=== PATIENT | female | born 1970 | race Caucasian/White ===

== ENCOUNTER 2020-05-25 14:39 | Emergency (ER) | payer OTHER ==
[~2020-05-25] VITALS: Ht 160 cm; Wt 104.3 kg
[2020-05-25 15:46] LABS: ABSOLUTE NEUTROPHILS 4.3 thou/uL (1.4-8.2); BASOPHILS 1.1 % (0.0-2.0); EOSINOPHILS 3.4 % (0.0-3.0); HEMATOCRIT 39.7 % (37.0-47.0); HEMOGLOBIN 13.1 gm/dL (12.0-15.0); MCH 28.9 pg (26.0-34.0); MCV 87.7 fL (80.0-100.0); MONOCYTES 4.8 % (1.0-8.0); PLATELET COUNT 199 thou/uL (150-400); POLYS 56.7 % (36.0-66.0); RBC 4.52 mil/uL (4.20-5.00); RDW 13.5 % (10.5-14.5); WBC 7.5 thou/uL (4.0-11.0)
[2020-05-25 15:52] LABS: CREATININE 0.9 mg/dL (0.6-1.0); POTASSIUM 4.1 mmol/L (3.5-5.1)
[2020-05-25 15:58] LABS: ALBUMIN 3.3 g/dL (3.4-5.0); TOTAL BILIRUBIN 0.3 mg/dL (0.2-1.0); TOTAL PROTEIN 7.4 g/dL (6.4-8.2)
[2020-05-25 15:59] LABS: URINE BILIRUBIN NEGATIVE (Negative); URINE BLOOD 2+ (Negative); URINE CLARITY CLEAR; URINE COLOR YELLOW; URINE GLUCOSE-RANDOM* NEGATIVE (Negative); URINE KETONES NEGATIVE (Negative); URINE LEUKOCYTES-REFLEX NEGATIVE (Negative); URINE NITRITE-REFLEX NEGATIVE (Negative); URINE PROTEIN (DIPSTICK) 1+ (Negative); URINE UROBILINOGEN 0.2 E.U./dl (0.2-1.0)
[2020-05-25 16:23] LABS: SQUAMOUS 0-3 Few /LPF (0-3); URINE RBC 3-10 Few /HPF (0-2)
[2020-05-25 16:24] LABS: BACTERIA-REFLEX 1-9 Few /HPF (None Seen); CASTS None Seen /LPF (None Seen); CRYSTALS None Seen /LPF (None Seen); URINE WBC-REFLEX 0-5 Rare /HPF (0-5)
[2020-05-25] MEDS ORDERED: CORRECTOL5 M1 PO (17:26)
[2020-05-25] MEDS ORDERED: ADVAIR DISKUS (17:26)
[2020-05-25] MEDS ORDERED: ADULT LOW DOSE81 MG PO (17:26)
[2020-05-25] MEDS ORDERED: PULMICORT1 MG/2 ML INH (17:27)
[2020-05-25] MEDS ORDERED: CARAFATE1 GM PO (17:27)
[2020-05-25] MEDS ORDERED: DILTIAZEM ER240 MG PO (17:28)
[2020-05-25] MEDS ORDERED: DUONEB INH (17:29)
[2020-05-25] MEDS ORDERED: LEXAPRO 10 MG T10 MG PO (17:29)
[2020-05-25] MEDS ORDERED: LISINOPRIL20 MG PO (17:30)
[2020-05-25] MEDS ORDERED: KEPPRA1000 MG PO (17:30)
[2020-05-25] MEDS ORDERED: LOPERAMIDE 2 MG2 M1 PO (17:39)
[2020-05-25] MEDS ORDERED: MYLANTA PO (17:59)
[2020-05-25] MEDS ORDERED: OMEPRAZOLE 20 M20 M1 PO (18:00)
[2020-05-25] MEDS ORDERED: ZUPLENZ4 MG PO (18:01)
[2020-05-25] MEDS ORDERED: PRIMIDONE 250M250 MG PO (18:01)
[2020-05-25] MEDS ORDERED: MI-ACID80 MG PO (18:02)
[2020-05-25] MEDS ORDERED: SEROQUEL XR 20200 MG PO (18:02)
[2020-05-25] MEDS ORDERED: TYLENOL325 MG PO (18:03)
[2020-05-25 19:30] VITALS: BP 128/78
--- NOTE | 2020-05-26 11:16 | EKG ---
[address] [address] ELECTROCARDIOGRAM REPORT Name: JERRY MADERA Room #: DEP [facility]#: [id number] Admission: 05/25/20 Attend Phys: Discharge: 05/25/20 Date of : 68 Report #: [id number] [facility] ED Test Date: 2020-05-25 Test Time: 15:08:05 Pat Name: JERRY MADERA Department: Room: Gender: F Fruit And Vegetable Packer: JCHAIREZ : 1970 Requested By: Philip Sagastume Order Number: [id number] MD: Tomy Alonzo Measurements Intervals [place] Rate: 78 P: 50 MT: 156 QRS: 49 QRSD: 88 T: 29 QT: 384 QTc: 438 Interpretive Statements Sinus rhythm No significant abnormality No previous ECG available for comparison Electronically Signed On 05-26-2020 11:16:45 BEAMER HELPER by Tomy Alonzo [email or web address] <ELECTRONICALLY SIGNED> By: Tomy Alonzo MD, [facility] 05/26/20 1116 [id number] [id number] Tomy Alonzo MD, FACC /EPI
== END 2020-05-25 19:48 ==
LOC: ER 14:39
PROVIDERS: Physician Assistant
DX: R45.851 Suicidal ideations (principal); R45.850 Homicidal ideations; Z79.82 Long term (current) use of aspirin; Z79.899 Other long term (current) drug therapy; Z88.8 Allergy status to other drugs, medicaments and biological substances; Z20.822 Contact with and (suspected) exposure to COVID-19

== ENCOUNTER 2020-05-25 20:31 | Inpatient (IN) | payer OTHER ==
[~2020-05-25] VITALS: Ht 160 cm; Wt 107.5 kg
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
[~2020-05-25 20:31] MED LIST: ADULT LOW DOSE81 MG PO; ADVAIR DISKUS; CARAFATE1 GM PO; CORRECTOL5 M1 PO; DILTIAZEM ER240 MG PO; DUONEB INH; KEPPRA1000 MG PO; LEXAPRO 10 MG T10 MG PO; LISINOPRIL20 MG PO; LOPERAMIDE 2 MG2 M1 PO; MI-ACID80 MG PO; MYLANTA PO; OMEPRAZOLE 20 M20 M1 PO; PRIMIDONE 250M250 MG PO; PULMICORT1 MG/2 ML INH; SEROQUEL XR 20200 MG PO; TYLENOL325 MG PO; ZUPLENZ4 MG PO
[2020-05-25 20:55] VITALS: BP 161/104
[2020-05-25 22:00] VITALS: BP 141/80
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
[2020-05-26 09:16] VITALS: BP 145/95
--- NOTE | 2020-05-26 12:31 | NUR ---
PT UPSET AND DIDN'T WANT CURRENT NURSE TO TAKE CARE OF HER. PT STATED I NEED TO TALK TO SOMEONE NOW AND ASKING THIS MEDICATION ADMINISTRATION PROFESSIONAL IF THERE WAS TIME TO TALK. PT STATED I'M GETTING ANGRY. PT STATED JUST GIVE ME A SHOT. ADM SEROQUEL 50MG PO FOR ANXIETY.
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
[2020-05-26 21:51] VITALS: BP 145/95
[2020-05-26 22:11] VITALS: BP 124/100
--- NOTE | 2020-05-26 23:56 | NUR ---
8253 RESUMMED CARE FROM DAY SHIFT THIS EVENING, PATIENT IN WC IN DAY ROOM. PATIENT WAS VERY ANXIOUS AT START OF SHIFT SHE ASKED IF SHE COULD CALL HER NEPHEW. I DID PLACE THE CALL AND PATIENT WAS ABLE TO BE MUCH CALMER; PATIENT ALERT ORIENTED TO SELF AND PLACE. PATIENTS ABDOMEN SOFT BOWEL SOUNDS PRESENT PATIENTS LUNGS CLEAR. PATIENT DENIES SI/HI/AH/VH AT PRESENT PATIENT STATES SHE DOES NOT FEEL SAFE AT HOME. PATIENT TOOK MEDICATION WITHOUT INCIDENCE AND THEN ASKED TO GO TO BED. WILL CONTINUE TO MONITOR PATIENT FOR SAFETY AND BEHAVIORS.
[2020-05-27 11:17] VITALS: BP 116/77
--- NOTE | 2020-05-27 18:37 | NUR ---
ASSUMED CARE AT 0700 TODAY. PT. UP IN THE MORNING. WENT TO BED AFTER BREAKFAST AND REMAINED IN BED UNTIL AFTER SUPPER. SHE REQUESTED PRN'S FOR ALL STRESSORS. SHE SPENT DAY IN BED, UP FOR SUPPER. SPOKE WITH MOTHER AND GOT UPSET AT 1830. SHE IS ASKING FOR PRN. STATES, "I'M CONFUSED THEN RATTLES OFF HOW MUCH SHE ATE AND HOW MANY TIMES SHE URINATED". GOT UP, THEN ASKED FOR HELP TO THE BATHROOM. WAS PUT ON FALL PRECAUTIONS DUE TO UNSTEADY GAIT.
[2020-05-27 18:58] VITALS: BP 116/77
--- NOTE | 2020-05-27 19:30 | NUR ---
SW completed treatment plan and psychosocial assessment. SW team will continue to follow.
[2020-05-27 19:39] VITALS: BP 115/71
--- NOTE | 2020-05-28 05:15 | NUR ---
05-27-20 CARE TRANSFERRED 1899 OBSERVED PT RESTING IN BED WITH EYES CLOSED. LATER PT AAOX2, VSS, RR EVEN AND NONLABORED ON RA, PT DENIES SI/HI AND PAIN AT THIS TIME. PT PRESENTS ANXIOUS BUT REMAINS COOPERATIVE. LATER PT BED WAS ADJUSTED FOR COMFORT. ZERO S/S OF ACUTE DISTRESS NOTED, PT WILL CONTINUE TO BE MONITOR PER [facility] PROTOCOL.
[2020-05-28 11:45] VITALS: BP 118/75
--- NOTE | 2020-05-28 11:55 | NUR ---
Nutrition: pt admit to [facility] with SI, HI. PMH: Bipolar, PTSD, borderline personality disorder, HTN, GERD, DM. BG 102-165. Eating highly variable amounts of meals from refusal to 100% past 2 days since admission. Pt reports appetite was fine prior to admit. Dislikes hospital food. Offered to assist with ordering meals and food preferences but pt denies. Refuses offer of supplements. Stable weights. RD encouraged ordering meals with assistance of staff as desired. Will follow for improvement in PO. Place as low risk.
[2020-05-28 14:21] VITALS: BP 118/75
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
--- NOTE | 2020-05-28 15:23 | NUR ---
During group patient identified "going to the k[place]" as a coping skill. She explains that she has always enjoyed being at the kiser physically but when she becomes upset it is helpful for people around her to say "go to the kiser," so so that she can imagine that she is there. She requests this to be done when she has outbursts on the unit.
[2020-05-28 19:33] VITALS: BP 109/76
--- NOTE | 2020-05-29 04:12 | NUR ---
05-28-20 CARE TRANSFERRED 0 OBSERVED PT SITTING IN DAYROOM IN W/CHAIR. LATER PT AAOX2, VSS, RR EVEN AND NONLABORED ON RA. PT DENIES SI/HI AND PAIN. PT HAS BEEN CALM AND COOPERATIVE. LATER PT BECAME TEARFULL AND REPORTED SHE WAS SCARED AND WANTED TO CALL HER MOM. PT WAS COMFORTED AND LATER CALLED MOM. LATER PT WAS ASSISTED TO BED AND BED ADJUSTED FOR COMFORT. ZERO S/S OF ACUTE DISTRESS NOTED, PT WILL CONTINUE TO BE MONITOR PER [facility] PROTOCOL.
[2020-05-29 07:00] VITALS: BP 128/86
[2020-05-29 08:40] VITALS: BP 123/80
--- NOTE | 2020-05-29 09:22 | NUR ---
PT VERY SLEEPY THIS AM. PT SLIDE DOWN IN W/C AND NEEDED TO BE AWOKE TO SIT UP. PT STATED I AM HOME, REASURED PT SHE WAS AT HOSPITAL. PT STATED NO SHE WAS IN THE HOSPITAL AND WANTED HER MOM. PT STATE SHE WAS TIRED.
--- NOTE | 2020-05-29 13:00 | NUR ---
PT WANTED TO TALK TO THIS JAVA ENGINEER AND WANTED TO GO OVER MEDS DUE TO SHE IS SLEEPY TODAY. PT TALKED ABOUT HER MOM AND HER BOYFRIEND.
--- NOTE | 2020-05-29 17:54 | NUR ---
PT TALKED TO DR. STROUD ABOUT HER MEDS. THIS BUILDING SERVICE WORKER GOING AROUND THE CORNER TO GET HER WATER AND HEARD HIM COMMENT THAT IF SHE TOUCHES HIM SHE WILL GO TO DETENTION. PT WAS SCREAMING AT DR. Vazquez. PT WAS SENT TO QUIET ROOM AND PT WAS LYING IN THE BED AND CRYING AND STATED DR. Vazquez YELLED AT HER. SHE WANTING TO HAVE A LORAZEPAM TO CALM HER DOWN. JUST GAVE PT SEROQUEL 100MG PO.
[2020-05-29 19:51] VITALS: BP 123/80
--- NOTE | 2020-05-30 05:29 | NUR ---
05-29-20 CARE TRANSFERRED 1914 OBSERVED PT SITTING IN W/CHAIR IN DAY ROOM. LATER PT AAOX2, VSS, RR EVEN AND NONLABORED ON RA. PT DENIES SI/HI AND PAIN. DURING MEDICATION ADMIN PT BECAME ANXIOUS AND STATED "DON'T PUT ME IN TIME, I JUST WANTED TO CALL MY MOMMIE" PT WAS EASILER TO COMFORT AND PT CALLED MOM. LATER PT WAS ASSISTED WITH BED ADJUSTMENT FOR COMFORT. ZERO S/S OF ACUTE DISTRESS NOTED, PT WILL CONTINUE TO BE MONITOR PER [facility] PROTOCOL
[2020-05-30 09:55] VITALS: BP 133/80
--- NOTE | 2020-05-30 13:05 | NUR ---
JESE contacted Pt's parents, Loy and Quiana Newell [phone], in an effort to set up a family meeting. JESE was unable to get in touch with anyone. JESE left a message for a call back
--- NOTE | 2020-05-30 14:15 | NUR ---
Assumed pt care at 0700. alert and oriented to self and situation. ambulates with a w/c. denies si/hi, denies pain at this time. Assessments completed,vss. Took meds whole, no difficulty noted. pt c/o of itching. Dr Arita notified. Hydroxyzine administered. calm and co-operative with care. pt sit in her w/c in the day room. pt occasionally pace unit with her w/c. will continue to monitor.
[2020-05-30 19:38] VITALS: BP 102/92
--- NOTE | 2020-05-30 23:49 | NUR ---
ASSESSMENT COMPLETED. PT WAS IN DAY AREA AT THE START OF SHIFT. GOT A LITTLE WORKED UP BY ANOTHER CLIENT-TRIED TO CALL MOM BUT THEN IMMEDIATELY GOT UPSET AND HUNG UP. SHE KEPT ON SAYING THAT SHE HAS TO GO TO A HAPPY PLACE WHICH IS THE [place]-SO SHE HAS TO IMAGINE SHE IS THERE SO NOT TO HAVE ANY OUTBURSTS. HS MEDS GIVEN INCLUDING VISTARIL WHICH I ASSURED HER WILL CALM HER SOME.STILL HAS ITCHING TO GORGE HANDS, DRY SKIN NOTED, LOTION APPLIED TO HANDS AND BACK WITH RELIEF.PT IS MAX ASSIT X 1 FOR TRANSFERS. SHE IS NOW OBSERVED IN BED WITH EYES CLOSED.
[2020-05-31 09:18] VITALS: BP 110/76
--- NOTE | 2020-05-31 10:20 | NUR ---
Assumed pt care at 0700. pt was alert and oriented to self and situation. ASSESSMENT COMPLETED VSS. PT AMBULATES WITH A W/C. TOOK MEDS WHOLE, NO DIFFICULTY NOTED. Denies si/hi. during assessments pt asked report writer if Rapid response will be call if she had a seizure. At approximately 1000 report writer was in the nurses station when she had a call for help. report writer and another nurse went into the day room and discovered pt on the floor. ASSESSING THE SITUATION,ASKING QUESTION AND WATCHING THE VIDEO. PT APPEARED TO START JERKING SELF, SPECIALTY PERSON asssisted her to the floor. when report writer arrived to pt. pt Stated that she was having a seizure, and she wanted us to call rapid response. pt was assisted back to her room. pt continued to ask nurse if she would give her seizure medication and call rapid response. pt stated she usually is aware when she was having a seizure.this time she was unaware of the seizure.At this time pt is in bed resting. per shift report, pt was asking for rapid response call on her last night, after witnessing a rapid response call on another pt. Pt is currently asking for anxiety meds, report writer reminded her she got hydroxyzine with 0800 meds. pt stated she wanted Ativan instead. DR Stroud IS AWARE OF PT SITUATION. DR STROUD WENT TO SPEAK WITH PT. WILL CONTINUE TO MONITOR.
--- NOTE | 2020-05-31 10:54 | NUR ---
Aprx 1008 pt was sitting in group in close proximity to this flex o writer operator. Patient gained flex o writer operator's attention when she was heard loudly yelling, "OH!!!" She raised her arms to the front of her and began flailing her arms and grunting. She then began to slide herself down her wheelchair so that her mid back was holding her up. She continued to thrust her body and grunt. At this time flex o writer operator and BLOCK CHOPPER HAND lowered pt to the floor. She did not hit her head. Once to floor nursing staff arrived for assistance and pt immediately opened her eyes, loudly stating, "I had a seizure! Well, not a seizure... a stress seizure! I don't remember what happened! Are you going to call a rapid response?" Staff assured pt that she was safe and assisted her back in to her chair and to her room. As she was wheeled to her room she was heard stating, "are you going to call rapid response? I don't even remember what happened but this is what happens when I am so stressed!" During group pt was attentive and at her baseline -- not displaying behaviors out of the ordinary for her. She did identify that, "it's not a good day. I am not having a good day. I just feel down." This event also occured after another pt began dancing, recieving attention of the group.
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
[2020-05-31 19:46] VITALS: BP 100/64
[2020-05-31 22:31] VITALS: BP 100/64
--- NOTE | 2020-05-31 23:44 | NUR ---
Assumed care on 05/31/20 @ 1900, in the day room in a w/c socializing with peers. Speaks when addressed, A&Ox2-3. Denies SI/HI. Spoke on the phone with her mother. Compliant with medication. After going to bed, c/o cindy, at patient's request, raised bed rail to help her feel secure. Follow up with patient in 12 minutes noted to have eyes closed, respirations even and unlabored, lying on her left side in the bed. Bed in low position, bed alarm set.
--- NOTE | 2020-06-01 08:09 | NUR ---
RT Progress Note- Zenaida has been a regular participant in both the milieu and recreation therapy groups since her admission. Zenaida is fairly active during group discussions, but does become extremely emotional at times- tearful, loud speech. She is supportive of other pts and has not had conflict with them during groups. REGULATORY PROCESS MANAGER will continue to encourage her participation with a goal of improved social interaction and mood stability.
[2020-06-01 09:29] VITALS: BP 126/85
--- NOTE | 2020-06-01 13:22 | NUR ---
JESE send referral to the following: [place] [phone] [place] [phone] [facility] [phone] [facility] [phone]
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
[2020-06-01 20:37] VITALS: BP 127/86
--- NOTE | 2020-06-02 03:22 | NUR ---
ASSESSMENT: PT REMAIN ALERT AND ORIENT TIMES THREE. "JUST WANT TO GO TO BED" AT THE BEGINNING OF THE SHIFT. VSS, AFEBRILE. DENIES SI/HI CURRENTLY. TOLERATING PO INTAKE. SLOW PROGRESS TOWARDS DC GOALS. WILL CONTINUE TO MONITOR.
[2020-06-02 08:25] VITALS: BP 154/89
--- NOTE | 2020-06-02 10:04 | NUR ---
0700 ASSUMED CARE OF PATIENT, PATIENT IN ROOM AT THAT TIME. PATIENT OUT TO DAYROOM VIA WC. ATE 100% OF BREAKFAST. MEDICATION TAKEN WHOLE WITHOUT DIFFICULTY. PATIENT TALKATIVE AND WORRIED ABOUT GETTING PLACED. PATIENT STATES "IM WORRIED THEY WILL NOT FIND A PLACE UNTIL I AM DC'D". REFUELING RAMP ATTENDANT TALKED WITH PATIENT, PATIENT UNDERSTANDS THE PROCESS. NO C/O PAIN, LS CLEAR, BS ACTIVE. VS BP- 143/64 P-97 R- 17 T- 97.9 SATS- 96% PATIENT PRESENT IN GROUP THIS AM. PATIENT COMMUNICATING WITH OTHERS WELL. PATIENT LAUGHING AND SMILING WITH OTHERS. PATIENT GOAL IS TO CONTROL HER ANGER. PATIENT CONCERN IS PLACEMENT. WILL CONTINUE TO OBSERVE
[2020-06-02 19:50] VITALS: BP 126/90
--- NOTE | 2020-06-03 01:12 | NUR ---
ASSESSMENT: PT REMAIN ALERT AND ORIENT TIMES. NO SEIZURES NOR OUTBURST NOTED. WAS SITTING IN THE DAY ROOM AT THE BEGINNING OF THE SHIFT. HS SNACK GIVEN. VSS, AFEBRILE. SLOW PROGRESS TOWARDS DC GOALS. WILL CONTINUE TO MONITOR.
[2020-06-03 09:46] VITALS: BP 138/98
--- NOTE | 2020-06-03 10:57 | NUR ---
JESE spoke with patient for a check in on her mental health. Patient reported she is very anxious about where she will live after being discharged. Patient reported she was living with her parents and other family members. Patient reported her parents informed her that she will need to be able to care for herself before she can return home. Patient reported she is interested in a skilled rehab. SW informed patient that she will not be released without having a safe place to be. JESE will follow up with patient.
--- NOTE | 2020-06-03 16:06 | NUR ---
Patient spoke with SW about placement. SW and patient together googles [facility] in [place]. Patient wanted to ask the facilty questions about the care they provide. SW contacted [facility], patient asked if there were rooms available. SW and patient looked at pictures online of the facility. Patient reported she was excited and wanted SW to fax a referral. Sia in admissions provided the fax number. SW faxed a referral to [facility], Sia reported she will contact the SW on Thursday with more information.
--- NOTE | 2020-06-03 17:32 | NUR ---
0700 ASSUMED CARE OF PATIENT, PATIENT IN ROOM SLEEPING. PATIENT TO BSC PRIOR TO GOING OUT TO DAYROOM X2 ASSIST. PATIENT SMILING AND HAPPY. PATIENT STATE "I WILL HAVE A GOOD DAY". PATIENT COMMUNICATES WELL WITH OTHER WITH NO BEHAVIORS NOTED. MEDICATIONS TAKEN WHOLE WITHOUT DIFFICULTIES. PRESENT IN GROUPS TODAY. VS WNL.
[2020-06-03 19:00] VITALS: BP 122/91
--- NOTE | 2020-06-04 03:24 | NUR ---
ASSUMED CARE FROM DAY SHIFT PT CALM COOPERATIVE IN DAYRROM WATCHING TV , HAVE NO CONCERNS AT THIS TIME. PO MEDICATION TAKEN WITH ISSUES. HS SNACK EATEN AND PT ROOLED TO SELF TO ROOM. UP TO BSC , LOWER VERY WEAK AND JERKING LIKE MOVEMENT. PT STATES THIS CAUSED BY HER MEDICATON.PT RESTING QUIETLY THROUHGOUT ROUNDING BED ALARM ON FOR SAFETY. WILL CONITNUE TO MONITOR AND WILL REPORT CHANGES.
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
[2020-06-04 10:20] VITALS: BP 133/96
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
[2020-06-04 13:05] VITALS: BP 133/96
--- NOTE | 2020-06-04 14:16 | NUR ---
1415 RESUMMED CARE FROM OVERNIGHT SHIFT THIS AM, PATIENT IN DAY ROOM TALKING WITH OTHER PATIENTS. PATIENT ATE BREAKFAST TOOK MEDICATION WITHOUT INCIDENCE; PATIENT DENIES SI/HI/AH/VH AT PRESENT. PATIENTS ABDOMEN SOFT BOWEL SOUNDS PRESENT PATIENTS LUNGS CLEAR. PATIENT HAS PARTICIPATED IN GROUPS NO BEHAVIORS THIS SHIFT. WILL CONTINUE TO MONITOR PATIENT FOR SAFETY AND BEHAVIORS.
[2020-06-04 19:24] VITALS: BP 103/72
--- NOTE | 2020-06-05 01:54 | NUR ---
ASSESSMENT: PT REMAIN ALERT AND ORIENT TIMES THREE. DID NOT SEEM ANXIOUS THIS SHIFT THUS FAR. IN WC IN THE DAY AREA AT THE CHANGE OF SHIFT. VSS, AFEBRILE. DENIES SI/HI. INVOLVED IN THE GOING ON IN THE DAY AREA. 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 TOLD PT THAT HER ROLE WAS THAT OF BEING A PT. DENIES PAIN, SOB AND NV. FALL PRECAUTIONS IN PLACE. SLOW PROGRESS TOWARDS DC GOALS, WILL CONTINUE TO MONITOR.
[2020-06-05 07:55] VITALS: BP 139/97
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
--- NOTE | 2020-06-05 14:09 | NUR ---
JESE sent referrals for home health to [facility]- accepted the referral Faye Collier
--- NOTE | 2020-06-05 15:00 | NUR ---
JESE called Pt's mother Diana, at Pt's request, concerning discharge. JESE updated Diana on the plan. Diana was concerning about follow up on Pt's psy appointments. JESE informed thos appointments will be made prior to Pt discharging. JESE informed diana of the discharge process and the information that is sent with the Pt. Diana was okay with Pt returning home. JESE will continue to follow up
--- NOTE | 2020-06-05 15:03 | NUR ---
0n3 Sw sent referral to: [facility]- Declined due to behaviors [facility]- Declined due to pshychiatric history [facility]- Declined [facility]- Declined [facility]- Declined [facility]- Declined due to behaviors
--- NOTE | 2020-06-05 15:05 | NUR ---
JESE was able to speak with Pt's case management associate,Truong Miller, from [phone]. JESE informed of pt discharge and was able to obtain follow up appointments for the Pt. Truong will see the Pt on 06/06/2020 @ 3pm. 06/19/20 @ 4:20pm Dr. Medina, Psychiatry 06/25/20 @2pm Louie Simpson, Therapist
[2020-06-05 16:04] VITALS: BP 139/97
[2020-06-05 19:18] VITALS: BP 102/58
--- NOTE | 2020-06-06 02:47 | NUR ---
PT SITTING IN WC IN THE DAY AREA. ELATED ABOUT LEAVING AT 1000AM TOMORROW. SAYING GOOD-BYES TO OTHER PTS. CALM AND COOPERATIVE. WILL CONTINUE TO MONITOR.
[2020-06-06 09:07] VITALS: BP 112/68
[2020-06-06] MEDS ORDERED: CLARITIN10 MG PO (09:08)
[2020-06-06] MEDS ORDERED: OXCARBAZEPINE300 MG PO ×2 (09:09→09:10)
[2020-06-06] MEDS ORDERED: CARDIZEM CD120 MG PO (09:09)
[2020-06-06] MEDS ORDERED: PRIMIDONE50 MG PO (09:09)
[2020-06-06] MEDS ORDERED: TRAZODONE HCL50 MG PO (09:10)
[2020-06-06] MEDS ORDERED: SEROQUEL 50 MG50 MG PO ×2 (09:11)
[2020-06-06] MEDS ORDERED: GLUCOPHAGE500 MG PO (09:12)
[2020-06-06] MEDS ORDERED: GLUCOTROL5 MG PO (09:13)
--- NOTE | 2020-06-06 11:49 | NUR ---
0700 ASSUMNED CARE OF PATIENT, PATIENT IN ROOM AT THAT TIME. PATIENT OUT TO DAYROOM AT 0730 VIA WC. PATIENT SMILING AND HAPPY THAT BEING DC'D TODAY. MEDICATIONS TAKEN WHOLE WITHOUT DIFFICULTIES. IN SHOWER THIS AM, HAIR BRAIDED BY STAFF. PATIENT TO BR WITH NO ASSIST. PATIENT OUT TO NURSES STATION TO REPORT SELF TRANSFER TO TOILET AND EXPRESSED THAT HER MOTHER WILL BE HAPPY. CHIP WASHER CALLED MOTHER OF PATIENT AND DISCUSSED MEDICATION PER DR STROUD REQUEST DUE TO MOTHER GIVES PATIENT MEDICATIONS. DC INSTRUCTIONS GIVEN, VOICED UNDERSTANDING. TRANSPORTATION HERE AT 1015, TO ED FOR [facility], TRANSPORT VAN BROKE DOWN AND PATIENT BACK TO UNIT TILL ANOTHER VAN ARRIVES. 1115 PATIENT DC VIA WC TO TRANSPORT VAN ACCOMPANIED BY STAFF WITH BELONGING IN HAND.
== END 2020-06-06 11:15 | disposition home health service (06) | DRG 883 ==
LOC: SBH 20:31
PROVIDERS: ADMIT Psychiatry & Neurology Psychiatry; ATTEND Psychiatry & Neurology Psychiatry
DX: F63.81 Intermittent explosive disorder (principal); Z68.41 Body mass index [BMI] 40.0-44.9, adult; R45.851 Suicidal ideations; J45.909 Unspecified asthma, uncomplicated; I10 Essential (primary) hypertension; K21.9 Gastro-esophageal reflux disease without esophagitis; E66.9 Obesity, unspecified; G47.00 Insomnia, unspecified; E11.9 Type 2 diabetes mellitus without complications; F43.20 Adjustment disorder, unspecified; F43.10 Post-traumatic stress disorder, unspecified; F31.9 Bipolar disorder, unspecified; R45.850 Homicidal ideations; F60.9 Personality disorder, unspecified; L29.8 Other pruritus; G40.909 Epilepsy, unspecified, not intractable, without status epilepticus; R26.9 Unspecified abnormalities of gait and mobility; Z62.820 Parent-biological child conflict; Z88.8 Allergy status to other drugs, medicaments and biological substances
CPT/HCPCS: 10880